=== PATIENT | female | born 2000 | race Caucasian/White ===

== ENCOUNTER 2025-05-27 19:38 | Emergency (ER) | payer BC, MEDICAID, SELFPAY ==
[2025-05-27] VITALS (12 sets, daily range): BP systolic 108–130; BP diastolic 64–80; PULSE 78–107; RESP 15–21; TEMP 37.1; O2SAT 98–100
--- NOTE | ~2025-05-27 | XR_ITS ---
EXAMINATION: XR chest 2V Exam Date/Time: 05/27/2025 19:58 CDT HISTORY: chest pain Comparison: None. RESULT: Lines, tubes, and devices: None. Lungs and pleura: Clear. Cardiomediastinal silhouette: Normal. Other: No acute osseous or upper abdominal finding. IMPRESSION: No acute cardiopulmonary process. Reviewed, dictated and finalized at location K.
--- NOTE | ~2025-05-27 | CT_ITS ---
EXAMINATION: CTA chest PE protocol DATE: 05/27/2025 21:07 INDICATION: cp, sob, positive dimer TECHNIQUE: Computed tomography angiography (CTA) of the chest was performed with 100 mL Omnipaque-350 intravenous contrast timed to evaluate the pulmonary arteries. Coronal maximum intensity projection 3D-reconstructions were created by the technologist. The dose-length product (DLP) was 337.20 mGy-cm. Automated exposure control and iterative reconstruction technique were employed. COMPARISON: X-ray chest, same date. FINDINGS: Lung parenchyma and airways: Clear. Pleura: Unremarkable. Thoracic inlet, axillae and chest wall: Unremarkable. Thoracic aorta: No significant dilation. No dissection. Bovine arch anatomy. The Mediastinum: Normal. Heart and pericardium: Normal. Coronary artery calcifications: . Upper abdomen: No significant finding. Bones: No acute osseous finding. Pulmonary arteries: Study quality: Evaluation of the left lung is mildly limited by cardiac motion. N o pulmonary emboli detected. IMPRESSION: No CT evidence of acute pulmonary embolus, noting that evaluation of the left lung is mildly limited by cardiac motion. No acute process detected in the chest. Reviewed, dictated and finalized at location K. IMPRESSION: No CT evidence of acute pulmonary embolus, noting that evaluation of the left l melody is mildly limited by cardiac motion. No acute process detected in the chest.
--- NOTE | 2025-05-27 19:45 | ECG_ITS ---
Test Date: 2025-05-27 19:51:08 Measurements Intervals [place] Rate: 96 P: 5 IN: 125 QRS: 35 QRSD: 82 T: 9 QT: 327 QTc: 415 Interpretive Statements SINUS RHYTHM NONSPECIFIC T-WAVE ABNORMALITY No previous ECG available for comparison Electronically Signed On 05-28-2025 11:03:23 CDT by Ad Oseguera M.D.
--- NOTE | 2025-05-27 19:54 | ED.CHESTPAIN ---
HPI - Chest Pain General Chief Complaint: Chest Pain Stated Complaint: chest pain Time Seen by Provider: 05/27/25 19:40 Source: patient Mode of arrival: ambulatory Limitations: no limitations History of Present Illness HPI narrative: Patient is a 25-year-old female, with past medical history of hypertension, depression/anxiety, GERD, who presents the ED with report of chest pain. Patient reports she had just finished eating shrimp [place] with her family when she began having sharp/dull/burning pain throughout her midsternal chest. States this began approximately 20 minutes prior to arrival. She also began feeling short of breath, somewhat nauseous. She also reports having a headache and slight dizziness. States she has history of acid reflux and states this does not feel similar. Denies pain or swelling in legs, recent cough or cold symptoms, fevers. Related Data Allergies Allergy/AdvReac Type Severity Reaction Status Date / Time NKDA Allergy Unknown Uncoded 10/03/12 07:08 NKFA Allergy Unknown Uncoded 04/21/03 13:54 Review of Systems Review of Systems: All systems reviewed & are unremarkable except as noted in HPI. All systems reviewed & are unremarkable except as noted in HPI and below Exam Narrative: GENERAL: Anxious appearing, morbidly obese with BMI of 40.4, non-toxic, in no acute distress. HEAD: Normocephalic, atraumatic. RESPIRATORY: Airway patent, respirations nonlabored. Clear to auscultation bilaterally, no rales, rhonchi, wheezing. No focal lung sounds. CARDIOVASCULAR: Regular rate and rhythm without murmurs, rubs, or gallops. ABDOMINAL: Soft, no tenderness throughout abdomen, nondistended. Normoactive BS. MUSCULOSKELETAL: Moves all extremities. No gross deformities. TTP throughout midsternal/anterior chest wall. No calf tenderness. No peripheral edema. SKIN: Warm, dry, normal color. NEURO: A&O X3. Speech clear. Cranial nerves II-XII grossly intact. Steady gait. No ataxic movements. PSYCHIATRIC: Mildly anxious appearing. Normal interaction. Course Vital Signs Vital signs: Vital Signs Temperature 98.8 F 05/27/25 19:46 Pulse Rate 107 H 05/27/25 19:46 Respiratory Rate 17 05/27/25 19:46 Blood Pressure 130/71 05/27/25 19:46 Pulse Oximetry 100 05/27/25 19:46 Oxygen Delivery Room Air 07/30/25 19:46 Temperature 98.8 F 05/27/25 19:46 Pulse Rate 91 05/27/25 23:30 Respiratory Rate 16 05/27/25 23:30 Blood Pressure 114/77 05/27/25 23:30 Pulse Oximetry 98 05/27/25 23:30 Oxygen Delivery Room Air 05/27/25 19:51 MDM - Chest Pain MDM Narrative Medical decision making narrative: Patient presented to ED with midsternal chest pain/burning that began after eating dinner tonight. Mild shortness of breath, mild dizziness. Patient slightly tachycardic upon arrival, though she reports this is normal for her. She is on metoprolol for blood pressure and heart rate control. She is afebrile. Oxygen saturation is stable on room air. She does appear mildly anxious. Attempted to give patient GI cocktail for suspected GERD/gastritis, however patient declined. Given Pepcid, Tylenol. EKG is without acute ischemic changes. Troponin is undetectable. Will obtain 3 hour. Remainder basic laboratory studies are otherwise unremarkable. LFTs within normal range. Lipase within normal range. No abdominal or right upper quadrant tenderness on exam. CXR clear D-dimer did result mildly elevated 0.64. CTA of chest was obtained and negative for PE or other acute cardiopulmonary abnormality. HEART score = 1 based on BMI/HTN. 3 hour troponin also undetectable. Discussed lab and imaging findings, overall reassuring workup. Low suspicion for ACS at this time. Suspicious for gastritis/esophagitis/GERD. Discussed this with patient. She is taking [id number] Nexium. Will prescribe Protonix. Discussed dietary/lifestyle modifications. Feel patient is otherwise stable for discharge home at this time. Discussed strict return precautions. She is in agreement with plan. Feels comfortable going home. Discharged in stable condition. Medical Records Data Attestation: I reviewed the patient's medical records. Lab Data Attestation: I reviewed the patient's lab results. 05/27/25 20:00 05/27/25 20:00 Labs: Lab Results 05/27/25 05/27/25 05/27/25 Range/Units 20:00 20:00 22:46 WBC 10.3 H (4.5-10.0) K/mm3 RBC 5.33 (4.2-5.4) M/mm3 Hgb 14.6 (12.0-15.0) g/dL Hct 46.3 (37.0-47.0) % MCV 86.9 (80-100) fl MCH 27.4 (26-34) pg MCHC 31.5 L (32-36) g/dl RDW 14.8 H (11.5-14.5) % Plt Count 318 (150-375) k/mm3 MPV 10.7 H (7.4-10.4) fl Immature Gran % (Auto) 0.2 (0-0.5) % Neut % (Auto) 59.7 (45.5-73.1) % Lymph % (Auto) 32.0 (18.3-44.2) % [place] % (Auto) 6.2 (2.6-8.5) % Eos % (Auto) 1.4 (0-4.4) % Baso % (Auto) 0.5 (0.2-1.2) % Lymph # (Auto) 3.31 H (0.9-3.2) K/mm3 [place] # (Auto) 0.6 (0.1-0.6) K/mm3 Eos # (Auto) 0.1 (0-0.3) K/mm3 Baso # (Auto) 0.1 (0.0-0.1) K/mm3 Abs Immat Gran (auto) 0.02 (0.00-0.031) K/mm3 Absolute Neuts (auto) 6.2 (1.3-6.7) K/mm3 Absolute Nucleated RBC 0.000 (0.0-0.012) K/mm3 Nucleated RBC % 0.0 (0.0-0.2) % PT 15.5 H (11.1-14.7) Seconds INR 1.2 APTT 30.9 (22.3-36.8) Seconds D-Dimer 0.64 H Cancelled (<0.48) ug/mL Sodium 137 (137-145) mmol/L Potassium 3.9 (3.4-5.0) mmol/L Chloride 101 (98-107) mmol/L Carbon Dioxide 27 (22-30) mmol/L Anion Gap 9 (4-12) mmol/L BUN 6 L (7-17) mg/dL Creatinine 0.65 L (0.7-1.0) mg/dL Estim Creat Clear Calc Not Reportable Estimated GFR > 60 (59 - ) Glucose 88 (65-110) mg/dL Calcium 9.9 (8.4-10.2) mg/dL Total Bilirubin 0.2 (0.2-1.3) mg/dL AST 31 (14-36) U/L ALT 16 (6-35) U/L Alkaline Phosphatase 84 (38-126) U/L Troponin I < 0.012 < 0.012 (0.000-0.034) ng/mL Total Protein 8.1 (6.3-8.2) g/dL Albumin 4.5 (3.5-5.1) g/dL Lipase 68 (23-300) U/L POC Urine HCG, Qual Negative (Negative) Imaging Data Attestation: I personally reviewed and interpreted this imaging study as follows: Radiologist's impression: ITS Impressions Chest X-Ray 05/27/25 20:35 IMPRESSION: No acute cardiopulmonary process. Chest CTA 05/27/25 21:19 IMPRESSION: No CT evidence of acute pulmonary embolus, noting that evaluation of the left lung is mildly limited by cardiac motion. No acute process detected in the chest. ECG Data EKG #1: Attestation: I personally reviewed and interpreted this ECG as follows: ECG completion date: 05/27/25 ECG completion time: 19:51 EKG Interpretation: normal rate (96), sinus rhythm and non-specific ST changes Discharge Plan Discharge Clinical Impression: Atypical chest pain, Esophagitis Patient Disposition: Home Condition: Stable Instructions: Antibiotic Form, Angina (ED), Chest Pain (ED), Diet for Stomach Ulcers and Gastritis (ED), GERD (Gastroesophageal Reflux Disease) (ED) Additional Instructions: Take Protonix daily for acid reflux. Avoid foods that are very greasy, spicy, fatty, acidic. Limit caffeine, alcohol use. Avoid NSAIDs (ibuprofen, Motrin, Advil, Aleve/naproxen) as these can be irritating to the stomach. Avoid lying flat directly after eating. Stay well hydrated. Follow-up with your primary care doctor and GI specialist for further evaluation. Return to the ED if you experience worsening or severe symptoms, severe pain, severe shortness of breath, unable to keep down food or drink, passing out, rectal bleeding, dark black stools, or any other symptoms of concern. Patient Language: Malay Prescriptions: New pantoprazole [Protonix] 40 mg tablet,delayed release (DR/EC) 40 mg PO HS 28 Days Qty: 28 0RF Follow-up/Referrals: UNKNOWN,DOCTOR [Primary Care Provider] - Time of Disposition: 23:29 Quality HEART score for chest pain patients History: slightly suspicious ECG: normal Age: < or = to 45 years Risk factors: 1 or 2 risk factors Troponin: < or = to 1x normal limit Heart score: 1
[2025-05-27 20:02] LABS: BEDSIDEPREGUCG Negative (Negative)
--- NOTE | 2025-05-27 20:05 | PC.NURSE ---
Pt taken to xray on stretcher
[2025-05-27 20:08] LABS: Hematocrit 46.3 % (37.0-47.0); Hemoglobin 14.6 g/dL (12.0-15.0); Immature Granulocyte Percent A 0.2 % (0-0.5); Lymphocytes Absolute Auto 3.31 K/mm3 (0.9-3.2); Mean Corpuscular HGB Conc 31.5 g/dl (32-36); Mean Corpuscular Hemoglobin 27.4 pg (26-34); Mean Corpuscular Volume 86.9 fl (80-100); Nucleated Red Blood Cells Absolute Auto 0.000 K/mm3 (0.0-0.012); Nucleated Red Blood Cells Perc 0.0 % (0.0-0.2); Platelet Count Result 318 k/mm3 (150-375); Red Blood Count 5.33 M/mm3 (4.2-5.4); White Blood Count 10.3 K/mm3 (4.5-10.0)
[2025-05-27] MEDS: ACETAMINOPHEN 500 MG TABLET 1000 MG PO (20:14)
[2025-05-27] MEDS: FAMOTIDINE 20 MG/2 ML VIAL IV PUSH (20:15)
[2025-05-27 20:16] LABS: Alanine Aminotransferase 16 U/L (6-35); Albumin Level 4.5 g/dL (3.5-5.1); Alkaline Phosphatase 84 U/L (38-126); Anion Gap 9 mmol/L (4-12); Aspartate Amino Transferase 31 U/L (14-36); Bilirubin,Total 0.2 mg/dL (0.2-1.3); Blood Urea Nitrogen 6 mg/dL (7-17); Calcium 9.9 mg/dL (8.4-10.2); Carbon Dioxide 27 mmol/L (22-30); Chloride 101 mmol/L (98-107); Estimated Glomerular Filt Rate > 60; Glucose 88 mg/dL (65-110); Lipase 68 U/L (23-300); Potassium 3.9 mmol/L (3.4-5.0); Sodium 137 mmol/L (137-145); Total Protein 8.1 g/dL (6.3-8.2)
[2025-05-27 20:21] LABS: INR 1.2; Partial Thromboplastin Time 30.9 Seconds (22.3-36.8); Prothrombin Time 15.5 Seconds (11.1-14.7)
--- OUTSIDE RECORDS SUMMARY | 2025-05-27 20:24 | XMS_ITS | Clinical Summary ---
Author Organization [facility] Address [address] [place] [address] Care Team Providers Care [employer] Name Role Phone MARÍA Faria, Jesica Primary Care Provider Allergies No known active allergies Medications amitriptyline (ELAVIL) 25 MG tablet Take 1 tablet (25 mg) by mouth at bedtime 4 Active citalopram (CELEXA) 20 MG tablet Take 1 tablet (20 mg) by mouth daily 4 Active doxycycline (VIBRAMYCIN) 100 MG capsule Take 1 capsule (100 mg) by mouth 2 times daily 5 Active esomeprazole (NEXIUM) 20 MG capsule Take 1 capsule (20 mg) by mouth 2 times daily 4 Active metoprolol succinate (TOPROL XL) 25 MG XL tablet Take 1 tablet (25 mg) by mouth daily 5 Active montelukast (SINGULAIR) 10 MG tablet Take 1 tablet (10 mg) by mouth daily 4 Active cholecalciferol (VITAMIN D) 25 MCG (1000 UT) tablet Take 1 tablet (1,000 Units) by mouth daily Active Cyanocobalamin (VITAMIN B 12 PO) Take Active Levonorgestrel (MIRENA, 52 MG, IU) by Intrauterine route once Inserted 2020 Active Active Problems Problem Noted Date Diagnosed Date Pilonidal cyst with abscess 12/10/2024 Social History Tobacco Use Types Packs/Day Years Used Date Smoking Tobacco: Never Passive Smoke Exposure: Never Smokeless Tobacco: Never Tobacco Cessation:Counseling Given: Yes Alcohol Use Standard Drinks/Week Comments Never 0 (1 standard drink = 0.6 oz pur e alcohol) Alcohol Use Answer Date Recorded Frequency of Alcohol Consumption Not on file 12/17/2024 Average Number of Drinks Not on file 025 Frequency of Binge Drinking Not on file 11/29 Alcohol Use Status Never 12/17/2024 Average alcohol consumption Not on file 11/29 Comments No Sex and Gender Information Value Date Recorded Sex Assigned at Female 12/17/2024 3:20 PM LITIGATION COORDINATOR Legal Sex Female 10:05 AM CDT Gender Identity Female 12/17/2024 3:20 PM LITIGATION COORDINATOR Sexual Orientation Not on file Last Filed Vital Signs Vital Sign Reading Time Taken Comments Blood Pressure 119/71 01/12/2025 10:14 AM CDT Pulse 95 01/12/2025 10:14 AM CDT Temperature 36.4 C (97.5 F) 01/12/2025 10:14 AM CDT Respiratory Rate 16 12/16/2024 11:24 AM LITIGATION COORDINATOR Oxygen Saturation 100% 01/12/2025 10:14 AM CDT Inhaled Oxygen Concentration - - Weight 74.4 kg (164 lb) 01/12/2025 10:14 AM CDT Height 139.7 cm (4' 7) 01/12/2025 10:14 AM CDT Body Mass Index 38.12 01/12/2025 10:14 AM CDT Plan of Treatment Health Maintenance Due Date Last Done Comments CHLAMYDIA SCREENING 2002 HIV Screening 2002 Hepatitis C Screening ages 18 to 79 once 2002 MMR VACCINES (1 of 1 - Standard series) 2003 Varicella Vaccine (2 of 2 - 2-dose childhood series) 09/04/2007 06/12/2007 DTaP/Tdap/Td Vaccines (3 - Td or Tdap) 11/09/2013 05/09/2013, 06/12/2007 Meningococcal B Vaccine (1 of 2 - Standard) 2018 BMI Above/Below Normal Parameters 2020 HEPATITIS B VACCINES (1 of 3 - 19+ 3-dose series) 2021 CERVICAL CANCER SCREENING 2023 ADULT TETANUS 05/09/2023 05/09/2013 COVID-19 Immunization ( season) 2024 06/21/2021, 05/17/2021 Influenza Vaccine 05/29/2025 09/28/2023, , 08/28/2022, Additional history exists DEPRESSION SCREENING 12/10/2025 12/10/2024 YEARLY WELLNESS EXAM 04/06/2026 04/06/2025 Zoster Vaccine (Recombinant Vaccine) (1 of 2) 2052 HPV VACCINES Completed 02/04/2020, 03/2019, 08/05/2019 HEPATITIS A VACCINES Aged Out No long er eligible based on patient's age to complete this topic HIB VACCINES Aged Out No longer eligi ble based on patient's age to complete this topic IPV VACCINES Aged Out No longer eligi ble based on patient's age to complete this topic MENINGOCOCCAL VACCINE Aged Out No gissell nick eligible based on patient's age to complete this topic Pneumococcal Vaccine: Peds to 50 & At-Risk Patients Aged Out No longer eligi ble based on patient's age to complete this topic ROTAVIRUS VACCINES Aged Out No longer eligible based on patient's age to complete this topic Insurance YULIANA/LYUDMILA Care Teams Mine Patrol Relationship Specialty Start Date End Date Jesica Ulrich V, SHARMIN-DEE [address] [place] [address] PCP - General Nurse Practitioner 12/08/24
--- OUTSIDE RECORDS SUMMARY | 2025-05-27 20:24 | XMS_ITS | Clinical Summary ---
Author Organization [facility] Address [address] [place] [address] Care Team Providers Care Environmental Compliance Officer Name Role Phone Joseline Gwendolyn Lang APRN-RENAL DIALYSIS RN Unavailable [phone] Damaris Peck MD Primary Care Provider [phone] Source Comments [facility],non-owned Affiliates and Associated Physician Practices is amultiple site organization consisting of ambulatory clinics and hospital sitesin [place], [place], [place] and [place]. This disclosure is being madepursuant to the Care Everywhere program and may not contain all information available regarding this patient. Last updated 18.[facility] Allergies No known active allergies Medications * This document contains information received from the source organization and may not represent a complete record from that organization. * Be aware that medications may not be up to date on this document. Alwaysverify current medications with the patient. levonorgestrel (MIRENA, 52 MG,) 20 MCG/24HR IUD Mirena Acti ve cyanocobalamin (Vitamin B-12) injection every 7 days 08/03/20 22 Active Winlevi 1 % CREA 2 times daily 04/03/20 23 Active Vitamin D3 (Cholecalciferol) 50 MCG (2000 UT) capsule Take 1 (one) capsule by mouth once daily Active Menaquinone-7 (Vitamin K2) 100 MCG Take 100 mcg by mouth at bedtime Active fluticasone propionate (Flonase) 50 MCG/ACT nasal spray [place] 2 (two) sprays into each nostril once daily 16 g 08/19/20 24 Active citalopram (CeleXA) 20 MG tabletIndications: Anxiety Take 1 (one) tablet by mouth once daily 90 tablet 3 04/06/20 25 Active Additional Information Patient taking differently: 40 mgOral DAILY,Reports increased per self, Reported on 05/13/2025 amitriptyline (Elavil) 25 MG tabletIndications: Other migraine without status migrainosus, not intractable Take 1 (one) tablet by mouth at bedtime 90 tablet 3 04/06/20 25 Active metoprolol succinate XL 24hr (Toprol XL) 25 MG tabletIndications: Primary hypertension,Tachy cardia Take 1 (one) tablet by mouth once daily 90 tablet 3 04/06/20 25 Active esomeprazole (NexIUM) 20 MG capsuleIndications :Gastroesophageal reflux disease without esophagitis Take 1 (one) capsule by mouth 2 times daily 180 capsule 3 04/06/20 25 Active cyclobenzaprine (Flexeril) 5 MG tabletIndications: Muscle cramps Take 1 (one) tablet by mouth 3 times daily as needed 90 tablet 5 04/06/20 25 Active montelukast (Singulair) 10 MG tabletIndications: Seasonal allergies Take 1 (one) tablet by mouth once daily 90 tablet 3 04/06/20 25 Active ferric carboxymaltose (Injectafer) 750 MG/15ML injectionIndicatio ns:Iron deficiency 15 mL by Intravenous route every 7 days (once a week) 15 mL 1 04/13/20 25 Active Additional Information Patient not taking.Reason: Side effects, Reported on 05/13/2025 mesalamine HD EC (Asacol Hd) 800 MG tabletIndications: Ulcerative colitis with complication, unspecified location (HCC) Take 1 (one) tablet by mouth 3 times daily 90 tablet 05/13/20 25 Active buPROPion (Wellbutrin) 75 MG tabletIndications: Moderately severe major depression (HCC) Take 1 (one) tablet by mouth once daily 30 tablet 05/13/20 25 Active Active Problems Problem Noted Date Diagnosed Date Moderately severe major depression 05/13/2025 Iron deficiency 04/22/2025 Mild intermittent asthma without complication Low back pain 11/10/2022 Ulcerative colitis with complication 04/04/2018 GERD (gastroesophageal reflux disease) 2 Precocious sexual developmen t and puberty, not elsewhere classified 05/17/2011 Anxiety Resolved Problems Problem Noted Date Diagnosed Date Resolved Date Asperger's disorder 03/25/2020 05/17/20 25 Generalized abdominal pain 04/04/2018 0 05/16/2023 Encounters * This document contains information received from the source organization and may not represent a complete record from that organization. Date Type Department Care Team Description 05/13/2025 3:00 PM CDT Office Visit [facility] Family [address] [phone] Damaris Peck MD Moderately severe major depression (HCC) (Primary Dx); Ulcerative colitis with complication, unspecified location (HCC) 04/23/2025 10:00 AM CDT - 04/23/2025 11:59 PM CDT Hospital Encounter [facility] [address] [place] [phone] Damaris Peck MD Discharge Disposition: Home or Self Care 04/20/2025 Telephone [facility] [address] [place] [phone] Damaris Peck MD Appointment 04/13/2025 Orders Only [facility] [address] [place] [phone] Damaris Peck MD 04/06/2025 10:48 AM CDT - 04/06/2025 11:59 PM CDT Hospital Encounter [facility] - Laboratory [address] [place] [phone] Damaris Peck MD Discharge Disposition: Home or Self Care 04/06/2025 10:00 AM CDT Office Visit [address] [place] [address] Damaris Peck MD Annual physical exam (Primary Dx); Mild intermittent asthma without complication (HCC); Iron deficiency; Thyroid disorder screening; Diabetes mellitus screening; Hip sprain, left, initial encounter; Anxiety; Other migraine without status migrainosus, not intractable; Primary hypertension; Tachycardia; Gastroesophageal reflux disease without esophagitis; Muscle cramps; Seasonal allergies 04/06/2025 Results Follow-Up [facility] [address] [place] [address] Damaris Peck MD 04/01/2025 Refill [facility] [address] [place] [phone] Jesica Ulrich, LAURA-RENAL DIALYSIS RN Refill Request 03/09/2025 4:30 PM CDT Office Visit [facility] [address] [place] [phone] Dysuria (Primary Dx); Acute sinusitis, recurrence not specified, unspecified location 03/09/2025 Travel from Last 3 Months Immunizations Immunization Administration Dates Next Due Zookal primary monoval ent 12+ yr 0.3mL Purple cap 06/21/2021,05/17/2021 DTaP VACCINE IM (6wk-6yrs) 06/12/2007 HEP A PEDS 2 DOSE 05/09/2013 Human Papilloma Virus Ninevalent Vaccine 020,10/03/2019,08/05/2019 INFLUENZA VACCINE 09/28/2023 INFLUENZA VACCINE, QUADR. (F LUZONE; FLULAVAL; FLUARIX; AFLURIA QUADRIVALENT; 6MO+), 0.5 ML (IIV4) 08/29/2022,08/28/2022,09/16/2021 MENINGOCOCCAL ACWY (MCV4P) VAC IM 05/09/2013 MMR 06/12/2007 POLIO IPV 06/12/2007 TDAP (7yrs+) 05/09/2013 VARICELLA 06/12/2007 Family History * Patient is adopted Relation Name Status Comments Mother Alive Social History Tobacco Use Types Packs/Day Years Used Date Smoking Tobacco: Never Smokeless Tobacco: Never Tobacco Cessation:Counseling Given: Not Answered Alcohol Use Standard Drinks/Week Comments Not Currently 0 (1 standard drink = 0.6 oz pur e alcohol) AUDIT-C Answer Date Recorded Q1: How often do you have a drink containing alc ohol? 2-4 times a month 05/30/2024 Q2: How many drinks containi ng alcohol do you have on a typical day when you are drinking? 1 or 2 05/30/2024 Q3: How often do you have si x or more drinks on one occasion? Never 05/30/2024 PHQ-2 Answer Date Recorded Patient Health Questionnaire-2 Score 6 05/13/2025 Comments No Sex and Gender Information Value Date Recorded Sex Assigned at Female 01/27/2022 4:24 PM CDT Legal Sex Female 5:42 AM LEASE EXAMINER Gender Identity Female 01/27/2022 4:24 PM CDT Sexual Orientation Straight 10/11/2022 5: 22 PM LEASE EXAMINER Last Filed Vital Signs Vital Sign Reading Time Taken Comments Blood Pressure 110/76 05/13/2025 3:02 PM CDT Pulse 88 05/13/2025 3:02 PM CDT Temperature 36.8 C (98.2 F) 05/13/2025 3:02 PM CDT Respiratory Rate 16 04/23/2025 11:18 AM CDT Oxygen Saturation 98% 04/23/2025 11:18 AM CDT Inhaled Oxygen Concentration 21% 08/29/2024 1 :57 PM CDT Weight 75.1 kg (165 lb 8 oz) 05/13/2025 3:02 PM CDT Height 139.7 cm (4' 7) 04/23/2025 10:12 AM CDT Body Mass Index 38.47 04/23/2025 10:12 AM CDT Plan of Treatment Upcoming Encounters Date Type Department Care Team (Late st Contact Info) Description 06/25/2025 11:00 AM CDT Office Visit [facility] [address] [address] [place] [phone] Damaris Peck MD [address] [place] [address] Malissa Potter, COMMERCIAL ACCOUNT MANAGER-RENAL DIALYSIS RN [address] [facility] [address] [place] [phone] Health Maintenance Due Date Last Done Comments HIV SCREENING 2017 CHLAMYDIA/GONORRHEA SCREENING 2018 MENINGOCOCCAL (Group B) VACCINE SHARED DECISION-MAKING (1 of 2 - Standard) 2018 HEPATITIS C SCREENING 04/29/2020 HEPATITIS B VACCINE (1 of 3 - 19+ 3-dose series) 2021 PNEUMOCOCCAL VACCINE (1 of 2 - PCV) 2021 PAP SMEAR 2023 DTAP/TDAP/TD VACCINES (3 - Td or Tdap) 05/09/2023 05/09/2013, 06/12/2007 COVID-19 VACCINE (3 - season) 2024 06/21/2021, 05/17/2021 INFLUENZA VACCINE (#1) 2025 , 08/29/2022, 08/28/2022, Additional history exists ZOSTER VACCINE (1 of 2) 2052 MENINGOCOCCAL GROUPS A/C/Y/W VACCINE Aged Out 05/09/2013 No longer eligible based on patient's age to complete this topic HPV VACCINE Completed 02/04/2020, 1203/2019, 08/05/2019 DEPRESSION SCREENING Completed 03/09/2025, 12/01/2023, 11/02/2022, Additional history exists HIB VACCINE Aged Out No longer eligi ble based on patient's age to complete this topic Procedures Procedure Name Priority Date/Time Associated Diagnosis Comments TSH REFLEX FREE T4 Routine 04/06/2025 10 :50 AM CDT Thyroid disorder screening IRON + TRANSFERRIN PANEL Routine 04/06/2025 10:50 AM CDT Iron deficiency FERRITIN Routine 04/06/2025 10:50 AM CDT Iron deficiency HEMOGLOBIN A1C Routine 04/06/2025 10:50 AM CDT Diabetes mellitus screening URINALYSIS - POCT (IP) BEAKER INTERFACE Routine 03/09/2025 4:45 PM CDT Dysuria URINALYSIS - POCT (IP) NOTIFICATION Routine 03/09/2025 4:32 PM CDT Dysuria from Last 3 Months Results * TSH REFLEX FREE T4 (04/06/2025 10:50 AM CDT) TSH 2.2638 0.35 - 4.94 uIU/mL 04/06/2025 1:02 PM CDT [facility] Comment:TSH Normal, Reflex F ree T4 Not Performed. Blood BLOOD SPECIMEN / Unknown Venipuncture / Unknown 04/06/2025 10:50 AM CDT 04/06/2025 10:50 AM CDT Damaris Peck MD LAB - CHEMISTRY ORDERABLES Final Result Performing Organization Address [facility] de Phone Number [facility] [address] [place] [address] * HEMOGLOBIN A1C (04/06/2025 10:50 AM CDT) Hemoglobin A1c 5.2 4.2 - 5.6 % 04/06/2025 12:51 PM CDT [facility] Estimated Average Glucose 103 mg/dL 04/06/2025 12:51 PM CDT [facility] Blood BLOOD SPECIMEN WITH EDTA / Unknown Venipuncture / Unknown 04/06/2025 10:50 AM CDT 04/06/2025 10:50 AM CDT Narrative [facility] - 04/06/2025 12:51 PM CDT HbA1c Interpretation: Normal: < 5.7% Pre-diabetes: 5.7-6.4% Diabetes: Equal to or greater than 6.5% Test results diagnostic of diabetes should be repeated for confirmation. Treatment target values recommended by ADA and other clinical organizations should be used to evaluate metabolic control in patients. This test should not replace glucose testing for patients with Type 1 diabetes, pediatric patients, or women. Falsely low HbA1c results may be observed in patients with clinical conditions that shorten erythrocyte life span or decrease mean erythrocyte age such as the presence of unstable hemoglobin variants, elevated hemoglobin F level or other causes of hemolytic anemia. HbA1c may not accurately reflect glycemic control when clinical conditions that affect erythrocyte survival are present. Severe Iron deficiency anemia may yield falsely high results. Hemoglobin A1c assay should not be used to diagnose or monitor diabetes in patients with malignancy, recent blood transfusion, chronic kidney or liver disease. This method may yield falsely low results when hemoglobin (HbF) exceeds 5% in the specimen. The Dao Alinity assay for the measurement of HbA1c is a National Glycohemoglobin Standardization Program (NGSP) certified method. us Damaris Peck MD LAB - CHEMISTRY ORDERABLES Final Result Performing Organization Address City/[facility] Co de Phone Number [facility] [address] [place] [address] * IRON + TRANSFERRIN PANEL (04/06/2025 10:50 AM CDT) Iron 66 50 - 170 ug/dL 04/06/2025 12:38 PM CDT [facility] Transferrin 345 180 - 382 mg/dL 04/06/2025 12:38 PM CDT [facility] TIBC Calculated 431 261 - 497 ug/dL 04/06/2025 12:38 PM CDT [facility] Iron Saturation % 15 11 - 45 % 04/06/2025 12:38 PM CDT [facility] Blood BLOOD SPECIMEN / Unknown Venipuncture / Unknown 04/06/2025 10:50 AM CDT 04/06/2025 10:50 AM CDT Result [facility] us Damaris Peck MD LAB - CHEMISTRY ORDERABLES Final Result Performing Organization Address [facility] Co de Phone Number [facility] [address] * FERRITIN (04/06/2025 10:50 AM CDT) Ferritin 12 5 - 204 ng/mL 04/06/2025 1:02 PM CDT [facility] Blood BLOOD SPECIMEN / Unknown Venipuncture / Unknown 04/06/2025 10:50 AM CDT 04/06/2025 10:50 AM CDT us Damaris Peck MD LAB - CHEMISTRY ORDERABLES Final Result [facility] [address] * (ABNORMAL) URINALYSIS - POCT (IP) BEAKER INTERFACE (03/09/2025 4:45 PM CDT) Color UA POCT Dark Yellow(A) Straw, Yellow, Light Yellow 03/09/2025 4:44 PM CDT [facility] Clarity UA POCT Cloudy(A) Clear 4:44 PM CDT [facility] Specific [place] UA POCT >=1.030 1.005 - 1.030 03/09/2025 4:44 PM CDT [facility] pH UA POCT 6.0 5.0 - 8.5 pH 03/09/2025 4:44 PM CDT [facility] Protein UA POCT Negative Negative 4:44 PM CDT [facility] Blood UA POCT Negative Negative, Trace-lysed , Trace-intac t 03/09/2025 4:44 PM CDT [facility] Leukocyte UA POCT Negative Negative 03/09/2025 4:44 PM CDT [facility] Nitrite UA POCT Negative Negative 4:44 PM CDT [facility] Glucose UA POCT Negative Negative 4:44 PM CDT [facility] Ketone UA POCT Negative Negative 03/09/2025 4:44 PM CDT [facility] Bilirubin UA POCT Negative Negative 03/09/2025 4:44 PM CDT [facility] Urobilinogen UA POCT 0.2 0.2 - 1.0 EU/dL 03/09/2025 4:44 PM CDT [facility] Urine URINE / Unknown 03/09/2025 4 :45 PM CDT 03/09/2025 4:44 PM CDT us Doug Flynn COMMERCIAL ACCOUNT MANAGER-RENAL DIALYSIS RN LAB - POINT OF CARE ORD ERABLES Final Result [facility] [id number] [place] [address] * URINALYSIS - POCT (IP) NOTIFICATION (03/09/2025 4:32 PM CDT) Comment Notification Label Only - See Separate Report 03/09/2025 6:09 PM CDT [facility] Urine URINE / Unknown 03/09/2025 4 :32 PM CDT 03/09/2025 4:32 PM CDT us Doug Flynn COMMERCIAL ACCOUNT MANAGER-RENAL DIALYSIS RN LAB - URINALYSIS ORDERA BLES Final Result [facility] [address] [address], [facility] from Last 3 Months Insurance [facility] [place] [address] [place] [address] [facility] * Guarantor: [employer]SCRE[employer]SO[employer] Account Type Relation to Patient Date of Phone Billing Address Company Employer [employer] [address] Advance Directives Documents on File Type Date Recorded Patient Dethistler Operator Expl anation Adv Directive/Living Will/POA 12/03/2023 1:08 PM 11/19/23 Care Teams Environmental Compliance Officer Relationship Specialty Start Date End Date Damaris Peck MD [address] [place] [address] PCP - General Internal Medicine 04/06/25 Gwendolyn Trevizo, COMMERCIAL ACCOUNT MANAGER-RENAL DIALYSIS RN [address] [address] Nurse Practitioner Family 04/26/23
--- OUTSIDE RECORDS SUMMARY | 2025-05-27 20:24 | XMS_ITS | Encounter Summary ---
Author Organization [facility] Address [address] [place] [address] Care Team Providers Care Geochemist Name Role Phone MARÍA Faria Heidi Primary Care Provider Encounter Details Date Type Department Care Team (Late st Contact Info) Description 12/10/2024 Prep for Surgery [facility] General Surgery [address] [place] [address] Doris Solorio MD [address] [facility] [address] [place], [place] [id number] Social History Tobacco Use Types Packs/Day Years Used Date Smoking Tobacco: Never Passive Smoke Exposure: Never Smokeless Tobacco: Never Comments Unknown Sex and Gender Information Value Date Recorded Sex Assigned at Female 12/17/2024 3:20 PM OIL FIELD TESTER Legal Sex Female 10:05 AM CDT Gender Identity Female 12/17/2024 3:20 PM OIL FIELD TESTER Sexual Orientation Not on file documented as of this encounter H&P Notes * Doris Solorio MD - 12/10/2024 2:29 PM CST Images from the original note were not included. [facility] General Surgery History and Physical New Patient Clinic Visit HPI 24F who presented with a pilonidal abscess at an [facility]. An incision and drainage was performed. She states that she feels better today. Reports less pain, no fevers, chills, nausea/vomiting. No BRBPR. Past Medical History No past medical history on file. Anxiety Past Surgical History No past surgical history on file. Prior non-specified perianal procedure as an infant. Social History Social History Socioeconomic History Marital status: Single Spouse name: Not on file Number of children: Not on file Years of education: Not on file Highest education level: Not on file Occupational History Not on file Tobacco Use Smoking status: Never Passive exposure: Never Smokeless tobacco: Never Substance and Sexual Activity Alcohol use: Not on file Drug use: Not on file Sexual activity: Not on file Other Topics Concern Not on file Social History Narrative Not on file Social Determinants of Health Financial Resource Strain: Not on file Food Insecurity: Not on file Transportation Needs: Not on file Physical Activity: Not on file Stress: Not on file Social Connection: Not on file Intimate Partner Violence: Not on file Housing Stability: Not on file Review of Systems Review of Systems Constitutional: Negative for chills and fever. Respiratory: Negative for cough and hemoptysis. Cardiovascular: Negative for chest pain and palpitations. Gastrointestinal: Negative for nausea and vomiting. Physical Exam There were no vitals filed for this visit. Physical Exam Constitutional: Appearance: Normal appearance. HENT: Head: Normocephalic and atraumatic. Nose: Nose normal. Mouth/Throat: Mouth: Mucous membranes are dry. Cardiovascular: Rate and Rhythm: Normal rate and regular rhythm. Pulmonary: Effort: Pulmonary effort is normal. No respiratory distress. Musculoskeletal: Cervical back: Normal range of motion and neck supple. Skin: General: Skin is warm and dry. Coloration: Skin is not pale. Comments: Pilonidal sinus present with mild inflammation, no purulence. Midline pits present. Neurological: Mental Status: She is alert. Imaging none Assessment No diagnosis found. Plan Will plan for pilonidal cyst excision and karydakis flap reconstruction. Risks (bleeding, infection, damage to near structures), benefits, and alternatives to surgery were discussed and the patient has agreed to proceed. 12/10/24 FIELD TESTER documented in this encounter Plan of Treatment Not on file documented as of this encounter Visit Diagnoses Not on filedocumented in this encounter Care Teams Geochemist Relationship Specialty Start Date End Date Jesica Ulrich V, ORTHOPEDIC SHOE FITTER- [address] [place] [address] PCP - General Nurse Practitioner 12/08/24 documented as of this encounter
--- OUTSIDE RECORDS SUMMARY | 2025-05-27 20:24 | XMS_ITS | Encounter Summary ---
Author Organization [facility] [employer] Address [address] [facility] [place] [address] Care Team Providers Care Measuring Machine Tender Name Role Phone Erlinda Lopez MD Primary Care Provider Unavailab Pat Trevino MD Primary Care Provider [phone] Erlinda Lopez MD Primary Care Provider Unavailab Magdaleno Poole MD Primary Care Provider [phone] Mirlela Rae COSMETIC CHEMIST-BOAT HOIST OPERATOR HELPER Primary Care Provider [phone] Jesica Ulrich COSMETIC CHEMIST-BOAT HOIST OPERATOR HELPER Primary Care Pr ovider Damaris Peck MD Primary Care Provider [phone] Gwendolyn Trevizo COSMETIC CHEMIST-BOAT HOIST OPERATOR HELPER Unavailable [phone] Jesica Ulrich COSMETIC CHEMIST-BOAT HOIST OPERATOR HELPER Primary Care Pr ovider Damaris Peck MD Primary Care Provider [phone] Reason for Visit * Reason Onset Date Comments Appointment 05/23/2011 Encounter Details Date Type Department Care Team (Late st Contact Info) Description 05/23/2011 Telephone [facility] Pediatrics - Endocrinology [address] [place] [address] Elaina White MD Appointment Social History Tobacco Use Types Packs/Day Years Used Date Smoking Tobacco: Never Assessed Comments Unknown Sex and Gender Information Value Date Recorded Sex Assigned at Female 01/27/2022 4:24 PM CDT Legal Sex Female 5:42 AM BIOMEDICAL EQUIPMENT TECHNICIAN Gender Identity Female 01/27/2022 4:24 PM CDT Sexual Orientation Straight 10/11/2022 5: 22 PM BIOMEDICAL EQUIPMENT TECHNICIAN documented as of this encounter Miscellaneous Notes * Telephone Encounter - Korin Cannon - 05/23/2011 10:40 AM CDT Patient's mother returned call. I advised that the pelvic ultrasound is scheduled for 05/29/11 @ 8:00a.m., but she must arrive at 7:[address] White - Mrs. Rodriguez wants you to give her a call because she has more questions regarding Rosita's care. documented in this encounter Plan of Treatment Upcoming Encounters Date Type Department Care Team (Late st Contact Info) Description 06/25/2025 11:00 AM CDT Office Visit [facility] - GI [address] [facility], [facility] [address] [place] [address] Damaris Peck MD [address] [place] [id number] Malissa Potter, COSMETIC CHEMIST-BOAT HOIST OPERATOR HELPER [address] [facility] [place] [address] [place] [address] documented as of this encounter Visit Diagnoses Not on filedocumented in this encounter Additional Health Concerns Infection Onset Date Last Indicated Resolved Time COVID-19 Under Investigation 04/04/2021 04/04/2021 04/05/2021 3:28 AM CDT COVID-19 Under Investigation 09/02/2021 09/02/2021 09/04/2021 9:17 AM BIOMEDICAL EQUIPMENT TECHNICIAN COVID-19 Under Investigation 05/08/2022 05/08/2022 05/08/2022 1:10 PM CDT COVID-19 Under Investigation 09/30/2023 09/30/2023 09/30/2023 11:38 AM BIOMEDICAL EQUIPMENT TECHNICIAN Influenza A or B 09/30/2023 09/30/2023 10/07/2023 4:33 AM BIOMEDICAL EQUIPMENT TECHNICIAN COVID-19 Under Investigation 05/30/2024 05/30/2024 05/30/2024 2:03 PM CDT COVID-19 Under Investigation 08/29/2024 08/29/2024 08/29/2024 2:05 PM CDT documented as of this encounter Care Teams Measuring Machine Tender Relationship Specialty Start Date End Date Erlinda Lopez MD No forwarding information PCP - General 05/17/11 2 Pat Escalera MD [address] [facility] [address] [place] [address] PCP - General 12/19/11 12/21/11 Erlinda Lopez MD No forwarding information PCP - General 12/22/11 4 Magdaleno Jade MD [address] [place], [place] [address] PCP - General Pediatrics 02/08/14 04/03/18 Mirella Rae, COSMETIC CHEMIST-BOAT HOIST OPERATOR HELPER [address] [place] [id number] PCP - General Nurse Practitioner 04/04/18 02/01/22 Jesica Ulrich, COSMETIC CHEMIST-BOAT HOIST OPERATOR HELPER [address] [place] [address] PCP - General Nurse Practitioner 02/02/22 12/27/22 Damaris Peck MD [address] [place], [place] [address] PCP - General Internal Medicine 12/28/22 06/18/24 Jesica Ulrich APRN-BOAT HOIST OPERATOR HELPER [address] [place], [place] [id number] PCP - General Nurse Practitioner 06/19/24 04/05/25 Damaris Peck MD [address] [place], [place] [address] PCP - General Internal Medicine 04/06/25 Gwendolyn Trevizo APRN-BOAT HOIST OPERATOR HELPER [address] [id number] Nurse Practitioner Family 04/26/23 documented as of this encounter
--- OUTSIDE RECORDS SUMMARY | 2025-05-27 20:24 | XMS_ITS | Clinical Summary ---
Author Organization [facility] Address [address] [place] [address] Phone Care Team Providers Care Career Services Assistant Name Role Phone Serg Vicente APRN, NOEMI, Jesica Primary Care Provid er Allergies No known active allergies Medications metoprolol Succinate (TOPROL-XL) 25 MG TABLET SR 24 HRIndications:H ypertension,Sup raventricular Tachycardia Take 25 mg by mouth daily. Indications: High Blood Pressure, Supraventricular Tachycardia Active montelukast (Singulair) 10 MG Tablet Take 10 mg by mouth every evening. Active esomeprazole (NexIUM) 20 MG CAPSULE DELAYED RELEASE Take 20 mg by mouth 2 times daily. Active amitriptyline (ELAVIL) 25 MG Tablet Take 25 mg by mouth nightly. Active citalopram (CeleXA) 20 MG Tablet Take 20 mg by mouth daily. Active VITAMIN D PO Take 2,000 Int'l Units/day by mouth daily. Active other 100 mcg by Other route nightly. Vitamin k2 Active IUD'S IU by Intrauterine route. Active Cyanocobalamin 1000 MCG/ML Kit 1,000 mcg by Injection route every 30 days. 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 Pulse - - Temperature - - Respiratory Rate - - Oxygen Saturation - - Inhaled Oxygen Concentration - - Weight - - Height - - Body Mass Index - - Plan of Treatment Health Maintenance Due Date Last Done Comments Hepatitis C Virus (HCV) Screening 2002 Meningococcal B Immunization (1 of 2 - Standard) 2018 Hepatitis B Immunization (1 of 3 - 19+ 3-dose series) 2021 Pap Smear 2023 SARS-COV-2 Immunization ( - 2023- season) 2024 06/21/2021, 05/17/2021 Influenza Immunization (#1) 2025 1210/2022, 08/29/2022, 08/28/2022, Additional history exists Respiratory Syncytial Virus (RSV) Immunization (Adult) (1 - 1-dose 75+ series) 2077 Meningococcal Immunization (ACWY) Aged Out 05/09/2013 No longer eligible based on patient's age to complete this topic TdaP Immunization Completed 05/09/2013 Human Papillomavirus (HPV) Immunization Completed 02/04/2020, 10/03/2019, 08/05/2019 Pneumococcal Immunization Combined Aged Out No longer eligible based on patient's age to complete this topic Rotavirus Immunization Aged Out No lo nger eligible based on patient's age to complete this topic Medical Devices Implanted Type Area Dry Kiln Loader Device Identifier Shelf Expiration Date Model / Serial / Lot [employer] Insurance Care Teams Career Services Assistant Relationship Specialty Start Date End Date Jesica Ulrich V, WAREHOUSE DISTRIBUTION ASSOCIATE, SEO MARKETING SPECIALIST [address] [place] [address] PCP - General Family Medicine 12/05/24
[2025-05-27 20:29] LABS: Troponin I < 0.012 ng/mL (0.000-0.034)
[2025-05-27] MEDS: MECLIZINE HCL 25 MG TABLET PO (20:45)
[2025-05-27] MEDS: SODIUM CHLORIDE 0.9% IV 1,000 ML 999 ML IV CONT (20:46)
--- NOTE | 2025-05-27 22:52 | ECG_ITS ---
Test Date: 2025-05-27 23:13:23 Measurements Intervals [place] Rate: 77 P: 9 DC: 121 QRS: 45 QRSD: 82 T: 9 QT: 359 QTc: 407 Interpretive Statements SINUS RHYTHM NONSPECIFIC T-WAVE ABNORMALITIES No previous ECG available for comparison Electronically Signed On 05-28-2025 11:07:22 CDT by Ad Oseguera M.D.
[2025-05-27 23:15] LABS: Troponin I < 0.012 ng/mL (0.000-0.034)
--- NOTE | 2025-05-27 23:20 | PC.NURSE ---
Pt states she is no longer feeling dizzy, medication effective.
== END 2025-05-27 23:40 | disposition home or self-care (01) ==
PROVIDERS: Emergency Medicine; Emergency Provider Physician Assistant
DX: R07.89 Other chest pain (principal); K20.90 Esophagitis, unspecified without bleeding; R94.31 Abnormal electrocardiogram [ECG] [EKG]
CPT/HCPCS: 36415; 71046; 71275; 80053; 81025; 83690; 84484; 85025; 85380; 85610; 85730; 93005; 96361; 96374; 99284; A9270; J7030; Q9967